=== PATIENT | male | born 1990 | race African-American/Black ===

== ENCOUNTER 2017-02-18 14:33 | Emergency (ER) | payer OTHER, MEDICAID ==
[~2017-02-18] VITALS: Ht 188 cm; Wt 82.0 kg
[2017-02-18 14:37] VITALS: BP 129/82
== END 2017-02-18 17:34 | disposition left against medical advice (07) ==
LOC: ER 16:23
DX: S61.011A Laceration without foreign body of right thumb without damage to nail, initial encounter (principal); F12.10 Cannabis abuse, uncomplicated; W25.XXXA Contact with sharp glass, initial encounter; Y93.89 Activity, other specified; Y92.89 Other specified places as the place of occurrence of the external cause; Y99.8 Other external cause status